=== PATIENT | female | born 1965 | race Hispanic/Latino ===

== ENCOUNTER 2020-09-11 11:38 | Outpatient (CLI) | payer OTHER, SELFPAY ==
[2020-09-11 11:52] LABS: Basophils Absolute Auto 0.09 K/mm3 (0.00-0.10); Basophils Percent Auto 1.4 % (0.0-1.0); Eosinophils Absolute Auto 0.45 K/mm3 (0.02-0.50); Eosinophils Percent Auto 7.1 % (1.0-6.0); Hematocrit 42.1 % (35.0-49.0); Hemoglobin 13.4 g/dL (12.0-15.0); Immature Granulocyte Absolute 0.01 K/mm3 (0.00-0.00); Immature Granulocyte Percent A 0.2 % (0.0-0.0); Lymphocytes Absolute Auto 2.38 K/mm3 (1.10-4.50); Lymphocytes Percent Auto 37.5 % (18.0-42.0); Mean Corpuscular HGB Conc 31.8 g/dL (32.0-36.0); Mean Corpuscular Hemoglobin 27.5 pg (27.0-31.0); Mean Corpuscular Volume 86.4 fL (78.0-102.0); Mean Platelet Volume 9.8 fl (9.2-11.8); Monocytes Absolute Auto 0.44 K/mm3 (0.10-0.90); Monocytes Percent Auto 6.9 % (2.0-11.0); Neutrophils Percent Auto 46.9 % (50.0-70.0); Platelet Count Result 333 K/mm3 (150-420); Red Blood Count 4.87 M/mm3 (4.20-5.40); Red Cell Distribution Width 14.1 % (11.6-14.4); White Blood Count 6.4 K/mm3 (4.8-10.8)
[2020-09-11 14:12] LABS: Alanine Aminotransferase 48 U/L (14-59); Alkaline Phosphatase 86 U/L (46-116); Anion Gap 8 mmol/L (8-16); Aspartate Amino Transferase 28 U/L (15-37); Bilirubin,Total 0.9 mg/dL (0.00-1.00); Blood Urea Nitrogen 14 mg/dL (7-18); Calcium 9.1 mg/dL (8.5-10.1); Carbon Dioxide 29 mmol/L (21-32); Chloride 105 mmol/L (98-108); Cholesterol 181 mg/dL (0-200); Estimated Glomerular Filt Rate > 60; Free T4 Free Thyroxine 0.73 ng/dL (0.76-1.46); Glucose 81 mg/dL (70-99); HDL Direct 78 mg/dL (40-60); LDL Cholesterol Calculated 83 mg/dL (<130); Osmolality Calculated 293 mOsm/kg (285-295); Potassium 4.2 mmol/L (3.5-5.1); Sodium 142 mmol/L (136-145); Thyroid Stimulating Hormone 1.26 uIU/mL (0.36-3.74); Total Protein 7.3 g/dL (6.4-8.2); Triglycerides 99 mg/dL (0-150)
== END 2020-09-11 11:39 | disposition home or self-care (01) ==
LOC: CHSLAB 11:41
PROVIDERS: PCP Nurse Practitioner Family; Visit Provider Nurse Practitioner Family
DX: Z00.00 Encounter for general adult medical examination without abnormal findings (principal); E03.9 Hypothyroidism, unspecified; I10 Essential (primary) hypertension
CPT/HCPCS: 36415; 80053; 80061; 84439; 84443; 85025

== ENCOUNTER 2020-09-12 11:01 | Outpatient (CLI) | payer OTHER, SELFPAY ==
--- NOTE | ~2020-09-12 | MM_ITS ---
EXAMINATION: MM screening maliha BI w shane HISTORY: Screening mammogram TECHNIQUE: Craniocaudal and mediolateral oblique 3-D tomosynthesis images were obtained and synthetic 2-D images were generated. CAD analysis was submitted and interpreted. COMPARISON: No prior mammogram is available for comparison at this institution. BREAST PARENCHYMAL COMPOSITION: There are scattered areas of fibroglandular density. FINDINGS: There are right 5 mm and left 4 mm axillary tail circumscribed opacities, benign in appeara nce, likely small intramammary benign lymph nodes. There is no evidence of suspicious mass, calcifi cation, or architectural distortion to suggest malignancy in either breast. There has been no suspici ous interval change. IMPRESSION: 1. No mammographic evidence of malignancy. 2. Recommend routine screening mammography in one year. BI-RADS Category 2: Benign finding(s). Reviewed, dictated and finalized at location A. TECHNICIAN
== END 2020-09-12 11:02 | disposition home or self-care (01) ==
LOC: CHSIMG 11:02
PROVIDERS: PCP Nurse Practitioner Family; Visit Provider Nurse Practitioner Family
DX: Z12.31 Encounter for screening mammogram for malignant neoplasm of breast (principal)
CPT/HCPCS: 77063; 77067

== ENCOUNTER 2021-06-20 09:46 | Outpatient (CLI) | payer OTHER, SELFPAY ==
--- NOTE | 2021-06-20 12:00 | NEURO_ITS ---
Impression: # Complains of numbness of hands. # Bilateral Carpal Tunnel Syndrome, sensory more than motor. # No ulnar neuropathy. # Normal needle/EMG exam. Nerve Conduction Studies Anti Sensory Summary Table Stim Site NR Peak (ms) P-T Amp (?V) Site1 Site2 Delta-P (ms) Dist (cm) Guillaume (m/s) Left Median Anti Sensory (2-3nd Digit) Wrist 4.7 21.0 Wrist 2-3nd Digit 4.7 14.0 30 Wrist 4.5 9.6 Wrist 2-3nd Digit 4.7 14.0 30 Right Median Anti Sensory (2-3nd Digit) Wrist 4.3 56.0 Wrist 2-3nd Digit 4.3 14.0 33 Wrist 6.3 86.6 Wrist 2-3nd Digit 4.3 14.0 33 Left Radial Anti Sensory (Base 1st Digit) Wrist 1.7 34.0 Wrist Base 1st Digit 1.7 0.0 Right Radial Anti Sensory (Base 1st Digit) Wrist 2.0 15.5 Wrist Base 1st Digit 2.0 0.0 Left Ulnar Anti Sensory (5th Digit) Wrist 2.4 52.2 Wrist 5th Digit 2.4 14.0 58 Right Ulnar Anti Sensory (5th Digit) Wrist 2.3 63.1 Wrist 5th Digit 2.3 14.0 61 Motor Summary Table Stim Site NR Onset (ms) O-P Amp (mV) Site1 Site2 Delta-0 (ms) Dist (cm) Guillaume (m/s) Left Median Motor (Abd Poll Brev) Wrist 3.4 3.6 Elbow Wrist 4.4 26.0 59 Elbow 7.8 3.3 Right Median Motor (Abd Poll Brev) Wrist 3.4 9.0 Elbow Wrist 4.4 25.0 57 Elbow 7.8 8.1 Left Ulnar Motor (Abd Dig Minimi) Wrist 2.3 6.8 A Elbow Wrist 4.3 26.0 60 A Elbow 6.6 5.2 Right Ulnar Motor (Abd Dig Minimi) Wrist 2.4 6.8 A Elbow Wrist 4.3 26.0 60 A Elbow 6.7 5.3 F Wave Studies NR F-Lat (ms) L-R F-Lat (ms) Left Median (Mrkrs) (Abd Poll Brev) 24.09 0.14 Right Median (Mrkrs) (Abd Poll Brev) 24.22 0.14 Left Ulnar (Mrkrs) (Abd Dig Min) 25.10 0.80 Right Ulnar (Mrkrs) (Abd Dig Min) 24.30 0.80 EMG Side Muscle Nerve Root Ins Act Fibs Amp Dur Recrt Comment Right 1stDorInt Ulnar C8-T1 Nml Nml Nml Nml Nml Right Ext Indicis Radial (Post Int) C7-8 Nml Nml Nml Nml Nml Right Ext Digitorum Radial (Post Int) C7-8 Nml Nml Nml Nml Nml Right BrachioRad Radial C5-6 Nml Nml Nml Nml Nml Right PronatorTeres Median C6-7 Nml Nml Nml Nml Nml Right Abd Poll Brev Median C8-T1 Nml Nml Nml Nml Nml Left 1stDorInt Ulnar C8-T1 Nml Nml Nml Nml Nml Left Ext Indicis Radial (Post Int) C7-8 Nml Nml Nml Nml Nml Left Ext Digitorum Radial (Post Int) C7-8 Nml Nml Nml Nml Nml Left BrachioRad Radial C5-6 Nml Nml Nml Nml Nml Left PronatorTeres Median C6-7 Nml Nml Nml Nml Nml Left Abd Poll Brev Median C8-T1 Nml Nml Nml Nml Nml Right ABD Dig Min Ulnar C8-T1 Nml Nml Nml Nml Nml Left ABD Dig Min Ulnar C8-T1 Nml Nml Nml Nml Nml MTDD
== END 2021-06-20 09:47 | disposition home or self-care (01) ==
PROVIDERS: PCP Nurse Practitioner Family; Visit Provider Plastic Surgery
DX: R20.2 Paresthesia of skin (principal); G56.03 Carpal tunnel syndrome, bilateral upper limbs
CPT/HCPCS: 95886; 95911

== ENCOUNTER → 2021-08-27 03:40 | Outpatient (CLI) | payer OTHER, SELFPAY ==
[2021-08-27 19:11] LABS: SARS-CoV-2 RNA PCR Negative
== END ==
PROVIDERS: PCP Nurse Practitioner Family; Visit Provider Plastic Surgery
DX: Z01.812 Encounter for preprocedural laboratory examination (principal); Z20.822 Contact with and (suspected) exposure to COVID-19
CPT/HCPCS: C9803; U0003; U0005

== ENCOUNTER 2021-08-30 01:11 | Day surgery (SDC) | payer OTHER, SELFPAY ==
[2021-08-22 11:58] VITALS: BMI 26.6
--- NOTE | 2021-08-22 12:10 | PC.NURSE ---
Report to the Outpatient Waiting Room, entrance under the green pavilion located off [facility], at time 1100 on date 08/30/21. OR Time: 1200. - You and your visitor will be asked a series of questions to screen for COVID 19 for your protection. - A mask is required within the hospital. - Only one visitor is allowed at this time. Patient visitors will be guided where to wait when not with patient. Preoperative COVID Testing Requirements: No COVID Test needed if: (proof is required; if not received patient will have Rapid Test prior to entry) - Patient has received COVID Vaccine at least 14 days prior to procedure date or - Patient has positive COVID test result within last 90 days of surgery date. COVID Test needed if above criteria is not met If not COVID vaccinated a COVID test must be conducted within 72 hours of surgery and patient is asked to isolate self from time of testing until procedure. You will go to the [facility] for your COVID testing. The [facility] Testing site is located at the corner of [address] [facility]. COVID TEST 08/27 AT 0910 You will only be called if COVID results are positive and your surgeon may reschedule your elective surgery date. Patients may have LIGHT BREAKFAST MORNING OF SURGERY Take the following medications with a SIP of water the morning of surgery: PRESCRIBED Medications to discontinue per physician: N/A Date to take last dose: N/A Please no make-up, nail cambodian, hairspray, perfume, deodorant, or body powder the day of surgery. No jewelry (including any body piercings) or valuables the day of surgery, leave them at home. Please take a shower or bath the night before, or the morning of, surgery with an antibacterial soap. Wear comfortable, loose fitting clothing. Children are encouraged to wear pajamas. - Jewelry must be removed prior to entering the operating room. Rings and piercings that are not removed may be cut off. - The hospital will not accept responsibility for valuables. - Please leave all valuables, including medications, at home the day of surgery. If you are going home after surgery, YOU MAY DRIVE YOURSELF HOME. Follow any additional instructions given to you from your surgeon. Telephone instructions given to FAZAL BRANCH and asked if any additional questions and then verbalized understanding. Patient advised to call surgeon office or pre surgery nurse liaison [phone] if any additional questions.
[2021-08-30] VITALS (7 sets, daily range): BP systolic 124–144; BP diastolic 63–83; PULSE 37–52; RESP 16–20; TEMP 37.2; O2SAT 98–100
--- NOTE | 2021-08-30 07:32 | WPDHPUPDATE1 ---
History and Physical Update Update Date/Time: 08/30/21 07:32 History and Physical has been reviewed, including an updated exam of the patient. There are NO changes in the patient's condition. Risks, benefits, and alternatives have been discussed and questions answered. Patient agrees to proceed with procedure.
[2021-08-30] MEDS: LIDO 1%/EPINEPHRINE 1:100,000 50 ML VIAL 7 ML INFILTRATE (11:44)
[2021-08-30] MEDS: BACITRACIN ZINC OINTMENT 0.9 GRAM PACKET 1 PACKET TOPICAL (12:18)
--- NOTE | 2021-08-30 14:53 | W.PM.PROC2 ---
Procedure Note - Detailed Date of Procedure 08/30/21 Pre-op Diagnosis Rt Carpal Tunnel Syndrome Post-op Diagnosis same Procedure Performed Right open carpal tunnel release Surgeon Bryce Krishnamurthy MD Anesthesia local Description of Procedure The right carpal tunnel region was marked on the patient in the holding area. She was taken to the operating room placed operating table. Time-out was held and confirmed. The right upper extremity prepped and draped in usual fashion tourniquet applied. Site was marked for the incision and infiltrated with 1% lidocaine with epinephrine. Time was allowed for hemostatic effect. The arm tourniquet was not utilized. The incision was made as marked and dissection was carried bluntly through the subcutaneous tissue to the palmar aponeurosis. This was incised revealing the transverse carpal ligament. This was also incised. A few bleeding points in the wall of the wound in the subcutaneous tissue were cauterized. Under 3 point retraction the ligament was divided distally and proximally for complete release. No unusual anatomy was noted. The skin was closed with interrupted 5 0 nylon suture. Usual bandage applied Srinivas wrap. She is discharged from the operating room stable condition. She has a prescription for hydrocodone [id number] [id number]. Estimated Blood Loss 2 Tourniquet Time 0 Drains No Packing No Pathology none sent Complications No immediate complications Condition stable Disposition same day
== END 2021-08-30 12:53 | disposition home or self-care (01) ==
PROVIDERS: PCP Nurse Practitioner Family; Visit Provider Plastic Surgery
PROC: (CPT 64721; principal; 2021-08-30 11:15)
DX: G56.01 Carpal tunnel syndrome, right upper limb (principal)
CPT/HCPCS: 64721; A9270

== ENCOUNTER 2021-09-06 11:13 | Outpatient (CLI) | payer OTHER, SELFPAY ==
--- NOTE | ~2021-09-06 | XR_ITS ---
EXAMINATION: XR shoulder RT min 2V EXAM DATE: 09/06/2021 11:44 INDICATION: Right shoulder pain, neck stiffness. TECHNIQUE: The following right shoulder projections obtained: frontal projection with internal rotati on, frontal projection with external rotation, Grashey, and axillary (4+ views). There is no prior s tudy for comparison. FINDINGS: No evidence of right shoulder rotator cuff calcific tendinosis. There is mild glenohumer al joint, mild acromioclavicular joint primary osteoarthritis. There are no acute fractures or disloc ations identified. There is no subcutaneous gas. The soft tissue is unremarkable. There are no ra diopaque foreign bodies. IMPRESSION: Mild right shoulder osteoarthritis. Reviewed, dictated and finalized at location B. AR WORKER
--- NOTE | ~2021-09-06 | XR_ITS ---
EXAMINATION: XR_CERV2-3V_CR EXAM DATE: 09/06/2021 11:44 INDICATION: Neck pain, stiffness, right shoulder pain. TECHNIQUE: Cervical spine frontal, lateral, open-mouth odontoid projections. There is no prior stud y for comparison. FINDINGS: There is moderate disc disease at C5-6 and 6-7. There is 2 mm anterolisthesis C4 on C5. Th e vertebral bodies are otherwise aligned. The vertebral body and disc heights are otherwise well main tained. The odontoid process is intact. The lateral masses of C1 line up with C2. Prevertebral soft tissue and pre-dens space are within normal limits. There is moderate cervical arthropathy and mid ce rvical uncovertebral joint arthropathy causing some neural foraminal stenosis C5-6 and 6-7. IMPRESSION: Moderate cervical spondylosis. Reviewed, dictated and finalized at location B. E PILOT
== END 2021-09-06 11:14 | disposition home or self-care (01) ==
LOC: CHSIMG 11:15
PROVIDERS: PCP Nurse Practitioner Family; Visit Provider Nurse Practitioner Family
DX: M25.511 Pain in right shoulder (principal); M54.2 Cervicalgia
CPT/HCPCS: 72040; 73030

== ENCOUNTER → 2021-09-21 00:14 | Outpatient (CLI) | payer OTHER, SELFPAY ==
[2021-09-22 16:52] LABS: SARS-CoV-2 RNA PCR Negative
== END ==
PROVIDERS: PCP Nurse Practitioner Family; Visit Provider Plastic Surgery
DX: Z01.812 Encounter for preprocedural laboratory examination (principal); Z20.822 Contact with and (suspected) exposure to COVID-19
CPT/HCPCS: C9803; U0003; U0005

== ENCOUNTER 2021-09-26 00:45 | Day surgery (SDC) | payer OTHER, SELFPAY ==
[2021-09-20 10:00] VITALS: BMI 27.6
--- NOTE | 2021-09-20 10:06 | PC.NURSE ---
Report to the Outpatient Waiting Room, entrance under the green pavilion located off [facility], at time 0930 on date 09/26/21. OR Time: 1030. - You will be asked a series of questions to screen for COVID 19 for your protection. - A mask is required within the hospital. - No visitors are allowed at this time. Preoperative COVID Testing Requirements: No COVID Test needed if: (proof is required; if not received patient will have Rapid Test prior to entry) - Patient has received COVID Vaccine at least 14 days prior to procedure date or - Patient has positive COVID test result within last 90 days of surgery date. COVID Test needed if above criteria is not met If not COVID vaccinated a COVID test must be conducted within 72 hours of surgery and patient is asked to isolate self from time of testing until procedure. You will go to the [facility] for your COVID testing. The [facility] Testing site is located at the corner of [address] [facility]. COVID TEST 09/21 AT 0920 You will only be called if COVID results are positive and your surgeon may reschedule your elective surgery date. Patients may have LIGHT BREAKFAST MORNING OF SURGERY Take the following medications with a SIP of water the morning of surgery: PRESCRIBED Medications to discontinue per physician: N/A Date to take last dose: N/A Please no make-up, nail occitan, hairspray, perfume, deodorant, or body powder the day of surgery. No jewelry (including any body piercings) or valuables the day of surgery, leave them at home. Please take a shower or bath the night before, or the morning of, surgery with an antibacterial soap. Wear comfortable, loose fitting clothing. Children are encouraged to wear pajamas. - Jewelry must be removed prior to entering the operating room. Rings and piercings that are not removed may be cut off. - The hospital will not accept responsibility for valuables. - Please leave all valuables, including medications, at home the day of surgery. YOU MAY DRIVE YOURSELF HOME. Follow any additional instructions given to you from your surgeon. Telephone instructions given to FAZAL BRANCH and asked if any additional questions and then verbalized understanding. Patient advised to call surgeon office or pre surgery nurse liaison [phone] if any additional questions.
[2021-09-26] VITALS (7 sets, daily range): BP systolic 123–164; BP diastolic 63–82; PULSE 43–60; RESP 16; TEMP 36.5; O2SAT 97–100
--- NOTE | 2021-09-26 07:14 | WPDHPUPDATE1 ---
History and Physical Update Update Date/Time: 09/26/21 07:14 History and Physical has been reviewed, including an updated exam of the patient. There are NO changes in the patient's condition. Risks, benefits, and alternatives have been discussed and questions answered. Patient agrees to proceed with procedure.
--- NOTE | 2021-09-26 10:38 | SUR.PREOP ---
pt informed slight delay in procedure.
[2021-09-26] MEDS: LIDO 1%/EPINEPHRINE/PF 1:200,000 30 ML VIAL INFILTRATE (11:23)
--- NOTE | 2021-09-26 11:40 | P.OP_ITS ---
Procedure Note - Detailed Date of Procedure 09/26/21 Pre-op Diagnosis Lt Carpal Tunnel Syndrome Post-op Diagnosis same Procedure Performed Left open carpal tunnel release Surgeon Bryce Krishnamurthy MD Anesthesia local Description of Procedure Volar wrist was in holding area. The patient was taken to the operating room and placed supine on the operating table. A time-out was held and confirmed. The extremity was prepped and draped in usual fashion. The site was marked and locally infiltrated with 1% lidocaine with epinephrine. The procedure was done without tourniquet control. The incision was made and some subcutaneous vessels were cauterized immediately. The blunt dissection revealed the palmar apon eurosis. This and the carpal ligament were incised with a 15. Blade. The carpal retinaculum was identified and under 3 point retraction the site was exposed and lysed distally and proximally. There was no unusual anatomy noted. The skin was closed with interrupted 5 0 nylon suture. The usual bandage was applied. She is discharged from the operating room stable condition. She has a prescription for hydrocodone 5/325 number 7. Estimated Blood Loss 2 Tourniquet Time 0 Drains No Packing No Pathology none sent Complications No immediate complications Condition stable Disposition same day
== END 2021-09-26 12:29 | disposition home or self-care (01) ==
PROVIDERS: PCP Nurse Practitioner Family; Visit Provider Plastic Surgery
PROC: (CPT 64721; principal; 2021-09-26 10:30)
DX: G56.02 Carpal tunnel syndrome, left upper limb (principal)
CPT/HCPCS: 64721; A9270

== ENCOUNTER 2021-12-20 17:19 | Emergency (ER) | payer OTHER, SELFPAY ==
--- NOTE | ~2021-12-20 | XR_ITS ---
XR chest 2V DATE: 12/20/2021 17:49 INDICATION: Dyspnea, cough for 3 weeks TECHNIQUE: 2 views COMPARISON: None FINDINGS: Normal heart size. No hilar or mediastinal enlargement. No pulmonary infiltrate or consolid ation, pleural effusion or pulmonary vascular congestion or pneumothorax. Aortic arch calcification. Included skeletal structures are unremarkable other than osteopenia. IMPRESSION: No active cardiac pulmonary disease Aortic arch calcification Osteopenia Reviewed, dictated and finalized at location A.
[2021-12-20 17:25] VITALS: BP 179/80; PULSE 84; RESP 18; TEMP 36.6; O2SAT 97
[2021-12-20 17:50] VITALS: PULSE 65; RESP 16; O2SAT 100
[2021-12-20] MEDS: IPRATROPIUM 0.5 MG/ALBUTEROL SULFATE 2.5 MG AMPUL.NEB 3 ML INHALATION (17:51)
[2021-12-20 18:00] VITALS: PULSE 75; RESP 16; O2SAT 99
--- NOTE | 2021-12-20 18:06 | ED.URI ---
HPI - URI/Sore Throat General Chief Complaint: Upper Respiratory Infection Stated Complaint: weakness,congestion,sob Time Seen by Provider: 12/20/21 18:06 Source: patient Mode of arrival: ambulatory Limitations: no limitations History of Present Illness HPI Narrative: this is a 56-year-old female that presents with a cough and congestion with some mild shortness of breath but the patient's O2 sats are 97% the patient was seen by her primary and was started on a Z-Tristan and after 3 to 4 days the patient states that she does not feel any better she feels like there is chest congestion. Patient has no fever chills no nausea vomiting no chest pain. MD elicited complaint: fever, cough and nasal congestion Onset (ago): day(s) Consistency: intermittent Severity: mild Related Data Allergies Allergy/AdvReac Type Severity Reaction Status Date / Time ibuprofen [From Advil] Allergy Swelling Verified 12/20/21 17:34 of the Eye Review of Systems Review of Systems: All systems reviewed & are unremarkable except as noted in HPI and below PMFSH Past Medical History Medical History HTN (hypertension) Hyperlipidemia Hypothyroidism Type 2 diabetes mellitus Surgical History Surgical History H/O carpal tunnel repair S/P trigger finger release Social History Social History Smoking status: Never smoker Alcohol intake: current Alcohol use details: 2/MONTH Substance use: never Substance use type: does not use Additional living arrangements comments: Lives with [facility]? Spiritual care concerns: No Exam Const: General: no acute distress Orientation/consciousness: patient oriented x3 HENMT: Head: normal to inspection Eyes: Conjunctivae: conjunctivae normal Pupils: Equal, round and reactive pupils present Neck: Neck: normal visual inspection, no lymphadenopathy and no meningeal signs Chest: Chest palpation & inspection: normal inspection of the chest Resp: Effort & Inspection: normal respiratory effort GI: GI Palp: Yes Soft to palpation : General: Yes no CVA tenderness Urinary Catheter: Urinary Catheter: patent and draining Skin: General skin exam: normal color Rashes: no rashes Neuro: General: patient oriented x3 and moves all extremities Extrem: General: normal to inspection and no pedal edema Psych: Mental Status: mental status grossly normal Affect: normal affect Course Course Emergency Course: Patient received nebulizer treatment patient states that chest congestion has improved, chest x-ray was reviewed and shows no pulmonary infiltrates, labs reviewed with patient. Vital Signs Vital signs: Vital Signs Temperature 36.6 C 12/20/21 17:25 Pulse Rate 84 12/20/21 17:25 Respiratory Rate 18 12/20/21 17:25 Blood Pressure 179/80 H 12/20/21 17:25 Pulse Oximetry 97 12/20/21 17:25 Temperature 36.6 C 12/20/21 17:25 Pulse Rate 84 12/20/21 17:25 Respiratory Rate 18 12/20/21 17:25 Blood Pressure 179/80 H 12/20/21 17:25 Pulse Oximetry 97 12/20/21 17:25 Critical Care Time Critical Care Time Critical Care Time: No Discharge Plan Discharge Clinical Impression: Upper respiratory tract infection Qualifiers: URI type: unspecified URI Qualified Code(s): J06.9 - Acute upper respiratory infection, unspecified Patient Disposition: Home, Self-Care Condition: Guarded Prognosis Instructions: Antibiotic Form, Upper Respiratory Infection (ED) Additional Instructions: take medicine as prescribed follow-up primary care physician if symptoms persist or worsen. Prescriptions: New levofloxacin 500 mg tablet 500 mg PO DAILY 7 Days Qty: 7 RF: 0 albuterol sulfate [ProAir HFA] 90 mcg/actuation HFA aerosol inhaler 2 puff inhalation QID PRN (Reason: shortness of breath or wheezing) Qty:
[2021-12-20 18:09] LABS: Basophils Absolute Auto 0.06 K/mm3 (0.00-0.10); Basophils Percent Auto 0.9 % (0.0-1.0); Eosinophils Absolute Auto 0.12 K/mm3 (0.02-0.50); Eosinophils Percent Auto 1.9 % (1.0-6.0); Hematocrit 44.5 % (35.0-49.0); Hemoglobin 14.4 g/dL (12.0-15.0); Immature Granulocyte Absolute 0.01 K/mm3 (0.00-0.00); Immature Granulocyte Percent A 0.2 % (0.0-0.0); Lymphocytes Absolute Auto 2.18 K/mm3 (1.10-4.50); Lymphocytes Percent Auto 34.2 % (18.0-42.0); Mean Corpuscular HGB Conc 32.4 g/dL (32.0-36.0); Mean Corpuscular Hemoglobin 28.4 pg (27.0-31.0); Mean Corpuscular Volume 87.8 fL (78.0-102.0); Mean Platelet Volume 9.7 fl (9.2-11.8); Monocytes Absolute Auto 0.87 K/mm3 (0.10-0.90); Monocytes Percent Auto 13.7 % (2.0-11.0); Neutrophils Absolute Auto 3.1 K/mm3 (1.7-7.2); Neutrophils Percent Auto 49.1 % (50.0-70.0); Platelet Count Result 331 K/mm3 (150-420); Red Blood Count 5.07 M/mm3 (4.20-5.40); Red Cell Distribution Width 13.8 % (11.6-14.4); White Blood Count 6.4 K/mm3 (4.8-10.8)
[2021-12-20 18:17] VITALS: PULSE 78; RESP 16; O2SAT 99
[2021-12-20 18:27] LABS: Alanine Aminotransferase 49 U/L (14-59); Albumin Level 3.5 g/dL (3.4-5.0); Alkaline Phosphatase 82 U/L (46-116); Anion Gap 11 mmol/L (8-16); Aspartate Amino Transferase 44 U/L (15-37); Bilirubin,Total 0.3 mg/dL (0.00-1.00); Blood Urea Nitrogen 14 mg/dL (7-18); Calcium 8.6 mg/dL (8.5-10.1); Carbon Dioxide 23 mmol/L (21-32); Chloride 103 mmol/L (98-108); Estimated CRCL calculation 62 ml/min; Estimated Glomerular Filt Rate > 60; Glucose 245 mg/dL (70-99); Osmolality Calculated 292 mOsm/kg (285-295); Potassium 3.7 mmol/L (3.5-5.1); Sodium 137 mmol/L (136-145); Total Protein 7.3 g/dL (6.4-8.2)
[2021-12-20 18:43] VITALS: BP 149/88; PULSE 69; RESP 18; TEMP 36.5; O2SAT 99
== END 2021-12-20 18:44 | disposition home or self-care (01) ==
PROVIDERS: Emergency Provider Emergency Medicine; PCP Nurse Practitioner Family
DX: J06.9 Acute upper respiratory infection, unspecified (principal)
CPT/HCPCS: 36415; 71046; 80053; 85025; 94640; 99283

== ENCOUNTER 2022-06-13 14:25 | Outpatient (CLI) | payer OTHER, SELFPAY ==
--- NOTE | ~2022-06-13 | XR_ITS ---
XR hip LT min 2V DATE: 06/13/2022 14:39 INDICATION: Chronic left hip pain. No known injury. TECHNIQUE: AP and lateral views COMPARISON: None FINDINGS: No fracture or dislocation, avascular necrosis or bone destruction. No periosteal reaction or bone destruction. Normal alignment at the left sacroiliac joint and pubic symphysis. IMPRESSION: Negative left hip Reviewed, dictated and finalized at location B. IMPRESSION: Negative left hip
== END 2022-06-13 14:26 | disposition home or self-care (01) ==
LOC: CHSIMG 14:27
PROVIDERS: PCP Nurse Practitioner Family; Visit Provider Nurse Practitioner Family
DX: M25.552 Pain in left hip (principal)
CPT/HCPCS: 73502

== ENCOUNTER 2022-09-09 11:49 | Outpatient (CLI) | payer OTHER, SELFPAY ==
[2022-09-09 12:33] LABS: Influenza A QL RT-PCR Negative (Negative); Influenza B QL RT-PCR Negative (Negative); SARS-CoV-2 RNA PCR Positive (Negative)
== END 2022-09-09 11:50 | disposition home or self-care (01) ==
LOC: CHSLAB 11:50
PROVIDERS: PCP Nurse Practitioner Family; Visit Provider Nurse Practitioner Family
DX: U07.1 COVID-19 (principal); R05.9 Cough, unspecified; R50.9 Fever, unspecified
CPT/HCPCS: 87636

== ENCOUNTER 2023-03-03 00:58 | Day surgery (SDC) | payer OTHER, SELFPAY ==
[2023-02-21 15:03] VITALS: BMI 25.4
--- NOTE | 2023-03-03 07:36 | WPDANESEPPF ---
Anes - Initial Pre Proc Eval Procedure: Operation Date: 03/03/23 13:30 Proposed Procedures p Screening Colonoscopy - Sonny Chowdary MD Date/Time: 03/03/23 07:36 Surgeon: Sonny Chowdary MD Pre Op Diagnosis: neoplasm screening Patient Data Age: 57 Gender: F Height: 1.52 m Weight: 59 kg Allergies Allergy/AdvReac Type Severity Reaction Status Date / Time ibuprofen [From Advil] Allergy Swelling Verified 03/03/23 12:28 of the Eye latex Allergy Other Verified 03/03/23 12:28 Home Medications Medication Instructions Recorded Confirmed Type loratadine 10 mg tablet (Allergy 10 mg PO DAILY #30 tabs 06/13/22 02/21/23 Rx Relief (loratadine)) fluticasone propionate 50 1 - 2 spray intranasal BID #18.2 mL 07/10/22 02/21/23 Rx mcg/actuation nasal spray,suspension (Flonase Allergy Relief) acetaminophen 650 mg tablet 650 mg PO Q6H PRN Pain 02/21/23 02/21/23 History albuterol sulfate 90 mcg/actuation 1 puff inhalation Q4H PRN 02/21/23 02/21/23 History aerosol inhaler Shortness Of Breath multivitamin with minerals-folic 1 tablet PO DAILY 02/21/23 02/21/23 History acid 0.4 mg tablet Patient hx anesthesia problems: none Family hx anesthesia problems: none Results Review: All pre-operative results and documents have been reviewed as part of the pre-operative evaluation. [facility], [facility] Past Medical History Medical History (Updated 02/28/23 @ 14:58 by Jarad Arguello DO) HTN (hypertension) Hyperlipidemia Hypothyroidism Sinus bradycardia Type 2 diabetes mellitus Surgical History Surgical History (Updated 02/28/23 @ 14:58 by Jarad Arguello DO) H/O carpal tunnel repair History of gastric bypass History of tubal ligation S/P trigger finger release Family History Family History Father Hypertension Heart disease Mother Diabetes mellitus Cerebrovascular accident Social History Social History (Updated 01/17/23 @ 15:44 by Shelbi Saucedo MA) Smoking status: Never smoker Alcohol intake: current Alcohol use details: monthly Substance use: never Substance use type: does not use Lack of Transportation: No Lack of Food: Never True Current Housing: I Have Housing Concerned About Future Housing: No Difficulty Paying Gas/Electric Bills: No Difficulty Paying for Meds: No Currently Unemployed: No Education: High School Diploma/GED Difficulty w/ Childcare or Family Care: No Living arrangements: with family Additional living arrangements comments: Lives with [place]? Spiritual care concerns: No Anes - Eval Final PreProcedure Day of Procedure 03/03/23 07:36 Patient weight: overweight Heart: regular rate and rhythm Lungs: clear to auscultation Airway: Mallampati scale class II Neurological: alert and oriented Last oral intake: >/= 8 hours ASA classification: III Emergent: no Anesthetic plan: proceed Anesthesia type and monitoring: general GIVS and standard monitoring Results Review: All pre-operative results and documents have been reviewed as part of the pre-operative evaluation. Informed Consent: The patient's anesthetic plan and its attendant risks and benefits were discussed with the patient/family/POA. Questions were solicited and answers provided to the satisfaction of the patient/family/POA.
[2023-03-03 12:29] VITALS: BP 142/84; PULSE 55; RESP 16; TEMP 36.1; O2SAT 99
[2023-03-03] MEDS: LACTATED RINGERS 1,000 ML 150 ML IV CONT (12:39)
--- NOTE | 2023-03-03 12:53 | PM.HPGS ---
History of Present Illness History of Present Illness Consent: Risks, benefits, and alternatives have been discussed and questions answered. Patient agrees to proceed with procedure. Chief complaint: neoplasm screening Narrative: Michelle Sheehan is a 57 year old female Presents for screening colonoscopy. Patient's current weight appetite and bowel movements are normal. Patient denies abdominal pain. She has had no bleeding. Family history is noncontributory. Review of Systems Review of Systems: Review of systems noncontributory. [facility] Past Medical History Medical History (Updated 02/28/23 @ 14:58 by Jarad Arguello DO) HTN (hypertension) Hyperlipidemia Hypothyroidism Sinus bradycardia Type 2 diabetes mellitus Surgical History Surgical History (Updated 02/28/23 @ 14:58 by Jarad Arguello DO) H/O carpal tunnel repair History of gastric bypass History of tubal ligation S/P trigger finger release Family History Family History Father Hypertension Heart disease Mother Diabetes mellitus Cerebrovascular accident Social History Social History (Updated 01/17/23 @ 15:44 by Shelbi Saucedo MA) Smoking status: Never smoker Alcohol intake: current Alcohol use details: monthly Substance use: never Substance use type: does not use Lack of Transportation: No Lack of Food: Never True Current Housing: I Have Housing Concerned About Future Housing: No Difficulty Paying Gas/Electric Bills: No Difficulty Paying for Meds: No Currently Unemployed: No Education: High School Diploma/GED Difficulty w/ Childcare or Family Care: No Living arrangements: with family Additional living arrangements comments: Lives with Fianc? Spiritual care concerns: No Meds Home Medications and Allergies Home Medications Medication Instructions Recorded Confirmed Type loratadine 10 mg tablet (Allergy 10 mg PO DAILY #30 tabs 06/13/22 02/21/23 Rx Relief (loratadine)) fluticasone propionate 50 1 - 2 spray intranasal BID #18.2 mL 07/10/22 02/21/23 Rx mcg/actuation nasal spray,suspension (Flonase Allergy Relief) acetaminophen 650 mg tablet 650 mg PO Q6H PRN Pain 02/21/23 02/21/23 History albuterol sulfate 90 mcg/actuation 1 puff inhalation Q4H PRN 02/21/23 02/21/23 History aerosol inhaler Shortness Of Breath multivitamin with minerals-folic 1 tablet PO DAILY 02/21/23 02/21/23 History acid 0.4 mg tablet Allergies Allergy/AdvReac Type Severity Reaction Status Date / Time ibuprofen [From Advil] Allergy Swelling Verified 03/03/23 12:28 of the Eye latex Allergy Other Verified 03/03/23 12:28 Vital Signs Vital Signs - 24 hr 03/03/23 12:29 Temperature 97 F L Pulse Rate 55 L Respiratory Rate 16 Blood Pressure 142/84 H Pulse Oximetry 99 Oxygen Delivery Room Air Exam Narrative: Physical exam reveals patient to be alert. Vital signs stable. HEENT exam is unremarkable. Patient is anicteric. Lungs are clear to auscultation and percussion. Heart is without murmur or extra sounds. Abdomen bowel sounds are present soft nontender with no organomegaly. Digital external rectal exam normal. Assessment and Plan Assessment and plan (1) Screening for colon cancer: Code(s): Z12.11 - Encounter for screening for malignant neoplasm of colon Status: Acute Assessment and Plan: Patient presents for screening colonoscopy. She appears to be at average risk for colon polyps. Further recommendations may be given after endoscopy.
[2023-03-03 13:51] VITALS: BP 117/79; PULSE 65; RESP 18; O2SAT 97
[2023-03-03 14:01] VITALS: BP 119/75; PULSE 55; RESP 22; O2SAT 100
[2023-03-03 14:11] VITALS: BP 132/76; PULSE 53; RESP 22; O2SAT 100
== END 2023-03-03 14:22 | disposition home or self-care (01) ==
PROVIDERS: PCP Emergency Medicine; Visit Provider Internal Medicine Gastroenterology
PROC: 0DJD8ZZ Inspection of Lower Intestinal Tract, Via Natural or Artificial Opening Endoscopic (ICD-10-PCS; CPT 45378; principal; 2023-03-03 13:30)
DX: Z12.11 Encounter for screening for malignant neoplasm of colon (principal); K64.8 Other hemorrhoids; K57.30 Diverticulosis of large intestine without perforation or abscess without bleeding; I10 Essential (primary) hypertension; E78.5 Hyperlipidemia, unspecified; E03.9 Hypothyroidism, unspecified; E11.9 Type 2 diabetes mellitus without complications; Z98.84 Bariatric surgery status; Z79.51 Long term (current) use of inhaled steroids
CPT/HCPCS: 45378; J2704; J7120

== ENCOUNTER 2024-02-19 07:42 | Day surgery (SDC) | payer OTHER, SELFPAY ==
[2024-01-30 15:14] VITALS: BMI 26.4
[2024-02-03 12:52] VITALS: BMI 26.2
--- NOTE | 2024-02-19 06:59 | WPDANESEPPF ---
Anes - Initial Pre Proc Eval Procedure: Operation Date: 02/19/24 10:00 Proposed Procedures p Esophagogastroduodenoscopy - Sonny Chowdary MD Date/Time: 02/19/24 06:59 Surgeon: Sonny Chowdary MD Pre Op Diagnosis: Epigastric pain, history of gastric bypass Patient Data Age: 58 Gender: F Height: 1.52 m Weight: 61 kg Allergies Allergy/AdvReac Type Severity Reaction Status Date / Time latex Allergy Intermediate Rash Verified 02/19/24 09:00 ibuprofen [From Advil] Allergy Mild Swelling Verified 02/19/24 09:00 of the Eye Home Medications Medication Instructions Recorded Confirmed Type loratadine 10 mg tablet (Allergy 10 mg PO DAILY #30 tabs 06/13/22 02/03/24 Rx Relief (loratadine)) acetaminophen 650 mg tablet 650 mg PO Q6H PRN Pain 02/21/23 02/19/24 History multivitamin with minerals-folic 1 tablet PO DAILY 02/21/23 02/03/24 History acid 0.4 mg tablet azelastine 137 mcg (0.1 %) nasal See Rx Instructions .Route 12/08/23 02/19/24 Rx spray aerosol .COMPLEX #30 mL albuterol sulfate 90 mcg/actuation 1 puff inhalation Q4H PRN 12/10/23 02/19/24 Rx aerosol inhaler Shortness Of Breath #8.5 grams cholecalciferol (vitamin D3) 1,250 1,250 mcg PO WEEKLY #8 tabs 01/08/24 02/03/24 Rx mcg (50,000 unit) tablet lisinopril 40 mg tablet 40 mg PO DAILY #90 tabs 01/08/24 02/03/24 Rx amitriptyline 25 mg tablet 25 mg PO QHS #30 tabs 01/29/24 02/03/24 Rx omeprazole 20 mg capsule,delayed 20 mg PO DAILY #30 caps 02/19/24 Rx release Patient hx anesthesia problems: none Family hx anesthesia problems: none Results Review: All pre-operative results and documents have been reviewed as part of the pre-operative evaluation. [facility] Past Medical History Medical History HTN (hypertension) Hyperlipidemia Hypothyroidism Sinus bradycardia Type 2 diabetes mellitus Resolved after gastric bypass Surgical History Surgical History H/O carpal tunnel repair History of gastric bypass History of tubal ligation S/P trigger finger release Family History Family History Father Hypertension Heart disease Mother Diabetes mellitus Cerebrovascular accident Social History Social History Smoking status: Never smoker Alcohol intake: current Drinks per week: 0 Alcohol use details: 1-2 PER MONTH Substance use: never Substance use type: does not use Lack of Transportation: No Lack of Food: Never True Current Housing: I Have Housing Concerned About Future Housing: No Difficulty Paying Gas/Electric Bills: No Difficulty Paying for Meds: No Currently Unemployed: No Education: High School Diploma/GED Difficulty w/ Childcare or Family Care: No Living arrangements: with family Additional living arrangements comments: Lives with Fianc? Spiritual care concerns: No Anes - Eval Final PreProcedure Day of Procedure 02/19/24 06:59 Patient weight: overweight Heart: regular rate and rhythm Lungs: clear to auscultation Airway: Mallampati scale class II Neurological: alert and oriented Last oral intake: >/= 8 hours ASA classification: II Emergent: no Anesthetic plan: proceed Anesthesia type and monitoring: general GIVS and standard monitoring Results Review: All pre-operative results and documents have been reviewed as part of the pre-operative evaluation. Informed Consent: The patient's anesthetic plan and its attendant risks and benefits were discussed with the patient/family/POA. Questions were solicited and answers provided to the satisfaction of the patient/family/POA.
[2024-02-19 09:11] VITALS: BP 145/91; PULSE 52; RESP 18; TEMP 36.4; O2SAT 99; BMI 26.7
[2024-02-19] MEDS: LACTATED RINGERS 1,000 ML 150 ML IV CONT (09:24)
--- NOTE | 2024-02-19 09:26 | PM.HPGS ---
History of Present Illness History of Present Illness Consent: Risks, benefits, and alternatives have been discussed and questions answered. Patient agrees to proceed with procedure. Chief complaint: Epigastric pain, history of gastric bypass Narrative: Michelle Sheehan is a 58 year old female presents on referral for EGD. Patient has a history of gastric bypass surgery 2016. She reports over the last 3 months has had epigastric discomfort. It may be a little bit worse on drinking spicy drinks. Sometimes were after drinking coffee. Patient has not tried any specific therapy nor antacids. She is referred for EGD denies any recent weight loss she has had no bleeding. Family history noncontributory. Review of Systems Review of Systems: All systems reviewed & are unremarkable except as noted in HPI and below PMFSH Past Medical History Medical History HTN (hypertension) Hyperlipidemia Hypothyroidism Sinus bradycardia Type 2 diabetes mellitus Resolved after gastric bypass Surgical History Surgical History H/O carpal tunnel repair History of gastric bypass History of tubal ligation S/P trigger finger release Family History Family History Father Hypertension Heart disease Mother Diabetes mellitus Cerebrovascular accident Social History Social History Smoking status: Never smoker Alcohol intake: current Drinks per week: 0 Alcohol use details: 1-2 PER MONTH Substance use: never Substance use type: does not use Lack of Transportation: No Lack of Food: Never True Current Housing: I Have Housing Concerned About Future Housing: No Difficulty Paying Gas/Electric Bills: No Difficulty Paying for Meds: No Currently Unemployed: No Education: High School Diploma/GED Difficulty w/ Childcare or Family Care: No Living arrangements: with family Additional living arrangements comments: Lives with Fianc? Spiritual care concerns: No Meds Home Medications and Allergies Home Medications Medication Instructions Recorded Confirmed Type loratadine 10 mg tablet (Allergy 10 mg PO DAILY #30 tabs 06/13/22 02/03/24 Rx Relief (loratadine)) acetaminophen 650 mg tablet 650 mg PO Q6H PRN Pain 02/21/23 02/19/24 History multivitamin with minerals-folic 1 tablet PO DAILY 02/21/23 02/03/24 History acid 0.4 mg tablet azelastine 137 mcg (0.1 %) nasal See Rx Instructions .Route 12/08/23 02/19/24 Rx spray aerosol .COMPLEX #30 mL albuterol sulfate 90 mcg/actuation 1 puff inhalation Q4H PRN 12/10/23 02/19/24 Rx aerosol inhaler Shortness Of Breath #8.5 grams cholecalciferol (vitamin D3) 1,250 1,250 mcg PO WEEKLY #8 tabs 01/08/24 02/03/24 Rx mcg (50,000 unit) tablet lisinopril 40 mg tablet 40 mg PO DAILY #90 tabs 01/08/24 02/03/24 Rx amitriptyline 25 mg tablet 25 mg PO QHS #30 tabs 01/29/24 02/03/24 Rx Allergies Allergy/AdvReac Type Severity Reaction Status Date / Time latex Allergy Intermediate Rash Verified 02/19/24 09:00 ibuprofen [From Advil] Allergy Mild Swelling Verified 02/19/24 09:00 of the Eye Vital Signs Vital Signs - 24 hr 02/19/24 09:11 Temperature 97.6 F Pulse Rate 52 L Respiratory Rate 18 Blood Pressure 145/91 H Pulse Oximetry 99 Oxygen Delivery Room Air Exam Narrative: Physical exam reveals patient to be alert. Vital signs stable. HEENT is unremarkable. Patient is anicteric. Lungs are clear to auscultation and to percussion heart is without murmur or bowel sounds are present soft nontender with no organomegaly. Digital external rectal exam normal. Assessment and Plan Assessment and plan (1) Epigastric abdominal pain: Code(s): R10.13 - Epigastric pain Status: Acute Assessment and Plan: Epigastric pain has
--- NOTE | 2024-02-19 09:30 | WPDANESEPPF ---
Anes - Initial Pre Proc Eval Procedure: Operation Date: 02/19/24 10:00 Proposed Procedures p Esophagogastroduodenoscopy - Sonny Chowdary MD Date/Time: 02/19/24 09:30 Surgeon: Sonny Chowdary MD Pre Op Diagnosis: Epigastric pain, history of gastric bypass Patient Data Age: 58 Gender: F Height: 1.52 m Weight: 62.1 kg Last Vital Signs Temp 36.4 C 02/19/24 09:11 Pulse 52 L 02/19/24 09:11 Resp 18 02/19/24 09:11 BP 145/91 H 02/19/24 09:11 Pulse Ox 99 02/19/24 09:11 O2 Del Method Room Air 02/19/24 09:11 Allergies Allergy/AdvReac Type Severity Reaction Status Date / Time latex Allergy Intermediate Rash Verified 02/19/24 09:00 ibuprofen [From Advil] Allergy Mild Swelling Verified 02/19/24 09:00 of the Eye Home Medications Medication Instructions Recorded Confirmed Type loratadine 10 mg tablet (Allergy 10 mg PO DAILY #30 tabs 06/13/22 02/03/24 Rx Relief (loratadine)) acetaminophen 650 mg tablet 650 mg PO Q6H PRN Pain 02/21/23 02/19/24 History multivitamin with minerals-folic 1 tablet PO DAILY 02/21/23 02/03/24 History acid 0.4 mg tablet azelastine 137 mcg (0.1 %) nasal See Rx Instructions .Route 12/08/23 02/19/24 Rx spray aerosol .COMPLEX #30 mL albuterol sulfate 90 mcg/actuation 1 puff inhalation Q4H PRN 12/10/23 02/19/24 Rx aerosol inhaler Shortness Of Breath #8.5 grams cholecalciferol (vitamin D3) 1,250 1,250 mcg PO WEEKLY #8 tabs 01/08/24 02/03/24 Rx mcg (50,000 unit) tablet lisinopril 40 mg tablet 40 mg PO DAILY #90 tabs 01/08/24 02/03/24 Rx amitriptyline 25 mg tablet 25 mg PO QHS #30 tabs 01/29/24 02/03/24 Rx Patient hx anesthesia problems: none Family hx anesthesia problems: none Results Review: All pre-operative results and documents have been reviewed as part of the pre-operative evaluation. [facility] Past Medical History Medical History HTN (hypertension) Hyperlipidemia Hypothyroidism Sinus bradycardia Type 2 diabetes mellitus Resolved after gastric bypass Surgical History Surgical History H/O carpal tunnel repair History of gastric bypass History of tubal ligation S/P trigger finger release Family History Family History Father Hypertension Heart disease Mother Diabetes mellitus Cerebrovascular accident Social History Social History Smoking status: Never smoker Alcohol intake: current Drinks per week: 0 Alcohol use details: 1-2 PER MONTH Substance use: never Substance use type: does not use Lack of Transportation: No Lack of Food: Never True Current Housing: I Have Housing Concerned About Future Housing: No Difficulty Paying Gas/Electric Bills: No Difficulty Paying for Meds: No Currently Unemployed: No Education: High School Diploma/GED Difficulty w/ Childcare or Family Care: No Living arrangements: with family Additional living arrangements comments: Lives with Fimony? Spiritual care concerns: No Anes - Eval Final PreProcedure Day of Procedure 02/19/24 09:30 Patient weight: overweight Heart: regular rate and rhythm Lungs: clear to auscultation and normal air movement Airway: Mallampati scale Neurological: alert and oriented Last oral intake: >/= 8 hours ASA classification: II Emergent: no Anesthetic plan: proceed Anesthesia type and monitoring: general Results Review: All pre-operative results and documents have been reviewed as part of the pre-operative evaluation. Informed Consent: The patient's anesthetic plan and its attendant risks and benefits were discussed with the patient/family/POA. Questions were solicited and answers provided to the satisfaction of the patient/family/POA.
[2024-02-19 10:21] VITALS: BP 114/65; PULSE 54; RESP 12; O2SAT 99
[2024-02-19 10:31] VITALS: BP 107/70; PULSE 45; RESP 12; O2SAT 99
[2024-02-19 10:41] VITALS: BP 112/98; PULSE 47; RESP 14; O2SAT 100
--- NOTE | 2024-02-19 11:18 | WPDANESPN ---
Anes - Prog Note Post-Op Date/Time: 02/19/24 11:18 Cardiovascular status: normal Respiratory status: normal Airway patency: baseline Mental status: baseline Post-Op hydration status: normal Vital Signs: Last Vital Signs Temp 36.4 C 02/19/24 09:11 Pulse 47 L 02/19/24 10:41 Resp 14 02/19/24 10:41 BP 112/98 H 02/19/24 10:41 Pulse Ox 100 02/19/24 10:41 O2 Del Method Room Air 02/19/24 10:41 Pain Score (VAS): 0 I/O: Intake & Output 02/18/24 02/19/24 02/19/24 23:59 07:59 15:59 Intake Total 500 Balance 500 Post-procedural complaints: none Patient Feedback: Patient satisfied with anesthetic care. Other Findings: Patient vital signs back to baseline. Patient denies nausea and vomiting. Patient's pain under control. Patient OK for discharge.
== END 2024-02-19 10:53 | disposition home or self-care (01) ==
PROVIDERS: PCP Emergency Medicine; Visit Provider Internal Medicine Gastroenterology
PROC: 0DJ08ZZ Inspection of Upper Intestinal Tract, Via Natural or Artificial Opening Endoscopic (ICD-10-PCS; CPT 43235; principal; 2024-02-19 10:00)
DX: R10.13 Epigastric pain (principal); Z98.84 Bariatric surgery status; K22.10 Ulcer of esophagus without bleeding
CPT/HCPCS: 43239

== ENCOUNTER 2025-06-14 09:31 | Outpatient (CLI) | payer OTHER, SELFPAY ==
--- NOTE | ~2025-06-14 | XR_ITS ---
EXAMINATION: XR shoulder LT min 2V, 06/14/2025 9:47 CDT HISTORY: M25.512 - Pain in left shoulder COMPARISON: No comparisons available. Findings: No acute fracture or malalignment. No significant degenerative changes. Soft tissues unremarkable. Impression: No acute fracture or malalignment. Reviewed, dictated and finalized at location A. Impression: No acute fracture or malalignment.
--- NOTE | ~2025-06-14 | XR_ITS ---
EXAMINATION: XR chest 2V, 06/14/2025 9:47 CDT HISTORY: Z01.818 - Encounter for other preprocedural examination COMPARISON: No comparisons available. Technique: 2 views obtained. Findings: The lungs are clear, no effusion. No pneumothorax. Heart is normal size. Mediastinal and hilar contours are within normal limits. Bony thorax no acute abnormality. Impression: No acute cardiopulmonary abnormality. Reviewed, dictated and finalized at location A. Impression: No acute cardiopulmonary abnormality.
--- NOTE | 2025-06-14 09:47 | ECG_ITS ---
Test Date: 2025-06-14 10:04:27 Measurements Intervals [place] Rate: 46 P: 41 NH: 164 QRS: 21 QRSD: 94 T: 22 QT: 408 QTc: 359 Interpretive Statements SINUS BRADYCARDIA OTHERWISE NORMAL ECG No previous ECG available for comparison Electronically Signed On 06-14-2025 12:45:24 CDT by Keith Gupta M.D.
[2025-06-14 10:08] LABS: INR 0.9; Partial Thromboplastin Time 26.2 Sec (23.9-30.70); Prothrombin Time 10.5 Seconds (9.50-12.1)
[2025-06-14 10:10] LABS: Hemoglobin A1C 5.5 % (<5.7)
[2025-06-14 10:27] LABS: Hematocrit 40.3 % (35.0-49.0); Hemoglobin 12.4 g/dL (12.0-15.0); Immature Granulocyte Percent A 0.2 % (0.0-0.0); Lymphocytes Absolute Auto 1.85 K/mm3 (1.10-4.50); Mean Corpuscular HGB Conc 30.8 g/dL (32-36); Mean Corpuscular Hemoglobin 25.5 pg (27.0-31.0); Mean Corpuscular Volume 82.8 fL (78.0-102.0); Nucleated Red Blood Cells Absolute Auto 0.00 K/mm3 (0.00-0.00); Nucleated Red Blood Cells Perc 0.0 % (0-0.0); Platelet Count Result 329 K/mm3 (150-420); Red Blood Count 4.87 M/mm3 (4.20-5.40); White Blood Count 6.5 K/mm3 (4.8-10.8)
[2025-06-14 10:57] LABS: Alanine Aminotransferase 28 U/L (6-35); Albumin Level 4.4 g/dL (3.5-5.1); Alkaline Phosphatase 82 U/L (38-126); Anion Gap 9 mmol/L (4-12); Aspartate Amino Transferase 37 U/L (14-36); Bilirubin,Total 1.0 mg/dL (0.2-1.3); Blood Urea Nitrogen 16 mg/dL (7-17); Calcium 9.9 mg/dL (8.4-10.2); Carbon Dioxide 27 mmol/L (22-30); Chloride 107 mmol/L (98-107); Cholesterol 192 mg/dL (0-200); Estimated Glomerular Filt Rate > 60; Glucose 99 mg/dL (65-110); HDL Direct 84 mg/dL; Osmolality Calculated 297 mOsm/kg (285-295); Potassium 4.7 mmol/L (3.4-5.0); Sodium 143 mmol/L (137-145); Total Protein 7.7 g/dL (6.3-8.2); Triglycerides 103 mg/dL (<150)
[2025-06-14 11:22] LABS: Free T4 Free Thyroxine 0.77 ng/dL (0.78-2.19)
[2025-06-14 11:27] LABS: Thyroid Stimulating Hormone 0.991 uIU/mL (0.465-4.680)
[2025-06-16 09:35] LABS: Total Triiodothyronine (T3) 0.890
== END 2025-06-14 09:32 | disposition home or self-care (01) ==
LOC: CHSLAB 09:33
PROVIDERS: PCP Nurse Practitioner Family; Visit Provider Nurse Practitioner Family
DX: Z01.818 Encounter for other preprocedural examination (principal); I10 Essential (primary) hypertension; Z79.01 Long term (current) use of anticoagulants; Z13.6 Encounter for screening for cardiovascular disorders; E11.9 Type 2 diabetes mellitus without complications; E03.9 Hypothyroidism, unspecified; R79.89 Other specified abnormal findings of blood chemistry; M25.512 Pain in left shoulder; R00.1 Bradycardia, unspecified
CPT/HCPCS: 36415; 71046; 73030; 80053; 80061; 83036; 84439; 84443; 84480; 85025; 85610; 85730; 93005

== ENCOUNTER 2025-06-22 13:00 | Outpatient (RCR) | payer OTHER, SELFPAY ==
--- NOTE | 2025-06-20 15:32 | OPREHPOC ---
Outpatient Therapy Plan of Care This is a Multidisciplinary Plan of Care that may contain components documented by all disciplines (PT, OT, and ST.) PT Problem 1 PT Problem #1 Knowledge Deficit PT Goal 1 Goal / Goal Update independent and compliant with HEP PT Problem 2 PT Problem #2 Pain PT Goal 1 Goal / Goal Update decrease pain at worst to 2/10 or less in the L shoulder Target Visit 12 PT Problem 3 PT Problem #3 Impaired Range of Motion PT Goal 1 Goal / Goal Update 150 degrees bilateral active shoulder flex 140 degrees bilateral active shoulder abd 90 degrees L active shoulder ER 65 degrees L active shoulder IR Target Visit 12 PT Problem 4 PT Problem #4 Impaired Strength PT Goal 1 Goal / Goal Update 4+/5 or better bilateral shoulder strength Target Visit 12 PT Problem 5 PT Problem #5 Impaired Functional Mobility PT Goal 1 Goal / Goal Update patient to sleep through the night 4 nights a week or better patient to get dressed without limitations or pain patient to reach ovehead and put 5lbs on tall shelf with each hand quick dash to display 30% or less functional deficits Target Visit 12
--- NOTE | 2025-06-20 15:32 | PTOPEVAL1 ---
Assessment and note entered by JT File, PT Evaluation Information Assessment Status Evaluation ICD-10 Condition Codes (PT) Pain in left shoulder M25.512 Onset 06/15/2025 Subjective Information patient reports she has been having pain in the L shoulder for years. she reports lately it has been getting much worse. she reports she is being woken up during sleep, she cant lift or open windows, and cant lift a gallon of water. she reports she is only able to lift it a little. she reports she did have an xray of the L shoulder. she reports she has not yet had an MRI of the L shoulder. she reports she was just prescribed a mm relaxor. Reported Pain Level Pain Score 7: Self Report Assessment PT Clinical Summary mrs. harper is a pleasant 60 yo woman who presents to skilled PT services for evaluation and treatment of L shoulder pain. she presents with pain in both shoulder upon evaluation today, but worse on the L side. she displays signs and symptoms consistent with bilat shoulder RTC tendinopathy (worse on the L side). she displays decreased active rom, mm weakness, positive RTC testing, and decreased functional activity performance. continued skilled PT is indicated to improve her objective/functional deficits and achieve her goals. Plan of Care Interventions Electrical Stimulation,Hot Pack/Cold Pack,Manual Therapy,Neuro Re-education,Patient/Caregiver Education,Therapeutic Activities,Therapeutic Exercise PT Services Indicated Yes Treatment Frequency and 3x weekly for 12 visits Duration These treatments will address the objective and functional deficits as defined above. The patient will be advanced safely and appropriately in order for the patient to progress towards his/her prior level of function. Additional exercises will be introduced and as well as a comprehensive home exercise program upon discharge, if needed, ?to ensure carryover of functional gains achieved in the clinic. This treatment plan has been reviewed and agreement upon by the patient.
--- NOTE | 2025-07-15 15:26 | BUPTOPEVAL1 ---
Assessment and note entered by JT File, PT Evaluation Information Assessment Status Progress Assessment Status Evaluation ICD-10 Condition Codes (PT) Pain in left shoulder M25.512 ICD-10 Condition Codes (PT) Pain in left shoulder M25.512 Onset 06/15/2025 Onset 06/15/2025 Subjective Information patient reports the L shoulder does not feel like it is improving much at all. she reports it still pina, catches, and aches. she reports it will also get stuck/locked at times. Subjective Information patient reports she has been having pain in the L shoulder for years. she reports lately it has been getting much worse. she reports she is being woken up during sleep, she cant lift or open windows, and cant lift a gallon of water. she reports she is only able to lift it a little. she reports she did have an xray of the L shoulder. she reports she has not yet had an MRI of the L shoulder. she reports she was just prescribed a mm relaxor. Reported Pain Level Pain Score 8: Self Report Pain Score 8: Self Report Pain Score 5: Self Report Pain Score 5: Self Report Pain Score 5: Self Report Pain Score 5: Self Report Pain Score 8: Self Report Pain Score 5: Self Report Pain Score 5: Self Report Pain Score 7: Self Report Assessment PT Clinical Summary mrs. harper presents to skilled PT services for her 10th visit for the L shoulder. she continues to have pain in the L shoulder and limitation in midrange shoulder flexion rom. she displays signs and symptoms still of RTC tendinopathy and impingement. continued skilled PT is indicated to work on improvement of objective/functional deficits to achieve goals. however, patient would benefit from having an injection or round of oral steroids to the L shoulder. PT Clinical Summary mrs. harper is a pleasant 60 yo woman who presents to skilled PT services for evaluation and treatment of L shoulder pain. she presents with pain in both shoulder upon evaluation today, but worse on the L side. she displays signs and symptoms consistent with bilat shoulder RTC tendinopathy (worse on the L side). she displays decreased active rom, mm weakness, positive RTC testing, and decreased functional activity performance. continued skilled PT is indicated to improve her objective/functional deficits and achieve her goals. Plan of Care Interventions Electrical Stimulation,Hot Pack/Cold Pack,Manual Therapy,Neuro Re-education,Patient/Caregiver Education,Therapeutic Activities,Therapeutic Exercise Interventions Electrical Stimulation,Hot Pack/Cold Pack,Manual Therapy,Neuro Re-education,Patient/Caregiver Education,Therapeutic Activities,Therapeutic Exercise PT Services Indicated Yes PT Services Indicated Yes PT Services Indicated Yes PT Services Indicated Yes PT Services Indicated Yes PT Services Indicated Yes PT Services Indicated Yes PT Services Indicated Yes PT Services Indicated Yes PT Services Indicated Yes Treatment Frequency and continue per initial POC Duration Treatment Frequency and 3x weekly for 12 visits Duration These treatments will address the objective and functional deficits as defined above. The patient will be advanced safely and appropriately in order for the patient to progress towards his/her prior level of function. Additional exercises will be introduced and as well as a comprehensive home exercise program upon discharge, if needed, ?to ensure carryover of functional gains achieved in the clinic. This treatment plan has been reviewed and agreement upon by the patient.
--- NOTE | 2025-07-15 15:27 | OPREHPOC ---
Outpatient Therapy Plan of Care This is a Multidisciplinary Plan of Care that may contain components documented by all disciplines (PT, OT, and ST.) PT Problem 1 PT Problem #1 Knowledge Deficit PT Goal 1 Goal / Goal Update independent and compliant with HEP Progress Met PT Problem 2 PT Problem #2 Pain PT Goal 1 Goal / Goal Update decrease pain at worst to 2/10 or less in the L shoulder Target Visit 12 Progress Not Met PT Problem 3 PT Problem #3 Impaired Range of Motion PT Goal 1 Goal / Goal Update 150 degrees bilateral active shoulder flex. met 140 degrees bilateral active shoulder abd 90 degrees L active shoulder ER 65 degrees L active shoulder IR. met Target Visit 12 Progress Partially Met PT Problem 4 PT Problem #4 Impaired Strength PT Goal 1 Goal / Goal Update 4+/5 or better bilateral shoulder strength Target Visit 12 Progress Not Met PT Problem 5 PT Problem #5 Impaired Functional Mobility PT Goal 1 Goal / Goal Update patient to sleep through the night 4 nights a week or better patient to get dressed without limitations or pain patient to reach ovehead and put 5lbs on tall shelf with each hand quick dash to display 30% or less functional deficits Target Visit 12 Progress Not Met
--- NOTE | 2025-07-20 15:47 | OPREHPOC ---
Outpatient Therapy Plan of Care This is a Multidisciplinary Plan of Care that may contain components documented by all disciplines (PT, OT, and ST.) PT Problem 1 PT Problem #1 Knowledge Deficit PT Goal 1 Goal / Goal Update independent and compliant with HEP Progress Met PT Problem 2 PT Problem #2 Pain PT Goal 1 Goal / Goal Update decrease pain at worst to 2/10 or less in the L shoulder Target Visit 12 Progress Not Met PT Problem 3 PT Problem #3 Impaired Range of Motion PT Goal 1 Goal / Goal Update 150 degrees bilateral active shoulder flex. met 140 degrees bilateral active shoulder abd. met 90 degrees L active shoulder ER 65 degrees L active shoulder IR. met Target Visit 12 Progress Partially Met PT Problem 4 PT Problem #4 Impaired Strength PT Goal 1 Goal / Goal Update 4+/5 or better bilateral shoulder strength Target Visit 12 Progress Partially Met PT Problem 5 PT Problem #5 Impaired Functional Mobility PT Goal 1 Goal / Goal Update patient to sleep through the night 4 nights a week or better. not met patient to get dressed without limitations or pain . not met patient to reach ovehead and put 5lbs on tall shelf with each hand. not met quick dash to display 30% or less functional deficits. not met Target Visit 12 Progress Not Met
--- NOTE | 2025-07-20 15:47 | PTOPREEVAL ---
Assessment and note entered by JT File, PT Evaluation Information Assessment Status Re-evaluation ICD-10 Condition Codes (PT) Pain in left shoulder M25.512 Onset 06/15/2025 Subjective Information patient reports the L shoulder continues to have pain with reaching and functional activities. she reports it hurts when reaching up overhead, and behind her back mostly. she reports she is getting a steroid dose pack later today for the L shoulder. she reports it pops and cracks all the time. Reported Pain Level Pain Score 6: Self Report Assessment PT Clinical Summary mrs. harper presents to skilled PT for her 12th skilled PT visit today. she displays good active rom against gravity, but with continued pain throughout the middle of the movement. she also displays good strength of the L shoulder, but again with pain against mmt resistance. she was educated today to hold off on therapy for a week, take her steroid dose pack (prescribed by PCP), and follow up with PT after she is done to assess thoughts on return to skilled PT. Plan of Care Interventions Electrical Stimulation,Hot Pack/Cold Pack,Manual Therapy,Neuro Re-education,Patient/Caregiver Education,Therapeutic Activities,Therapeutic Exercise PT Services Indicated Yes Treatment Frequency and hold therapy for a week and follow up. Duration These treatments will address the objective and functional deficits as defined above. The patient will be advanced safely and appropriately in order for the patient to progress towards his/her prior level of function. Additional exercises will be introduced and as well as a comprehensive home exercise program upon discharge, if needed, ?to ensure carryover of functional gains achieved in the clinic. This treatment plan has been reviewed and agreement upon by the patient.
== END 2025-09-18 23:59 | disposition home or self-care (01) ==
LOC: CHSPT 13:00
PROVIDERS: PCP Nurse Practitioner Family; Visit Provider Nurse Practitioner Family
DX: M25.512 Pain in left shoulder (principal)
CPT/HCPCS: 97014; 97110; 97140; 97161; G0283

== ENCOUNTER 2025-06-27 10:05 | Outpatient (CLI) | payer OTHER, SELFPAY ==
--- NOTE | 2025-06-27 10:10 | EST_ITS ---
Patient Info Name: Michelle Sheehan Age: 60 years : 1965 Gender: Female Ht: 60 in Wt: 134 lbs BSA: 1.62 m2 HR: 56 bpm BP: 154 / 101 mmHg Heart Rhythm: Bradycardia Technical Quality: Good Exam Date: 06/27/2025 10:10 AM Patient Status: O Admit Date: 06/27/2025 Exam Type: CA stress test treadmill A treadmill exercise stress test was performed. Staff Attending Provider: Cyndee Harry Summary 1. 1. Negative Silvino exercise stress test for ischemic ST changes by ECG criteria. 2. 2. Good functional capacity, achieving 11 METs of workload. 3. 3. Baseline hypertension. 4. 4. Appropriate HR response to exercise. 5. 5. Appropriate HR recovery at 1 minute post exercise. 6. 6. No imaging with stress testing. History/Risk Factors Hypertension: Yes Dyslipidemia: Yes Diabetes Mellitus: Type II Protocol: Silvino Stress ECG Details Stage: REST Duration (min): 3 min : 19 sec Speed (mph): 0.0 Grade (%): 0 HR (bpm): 57 SBP (mmHg): 154 DBP (mmHg): 101 METS: --- Stage: REST Duration (min): 10 min : 26 sec Speed (mph): 0.0 Grade (%): 0 HR (bpm): 58 SBP (mmHg): 154 DBP (mmHg): 101 METS: --- Stage: STAGE 1 Duration (min): 1 min : 0 sec Speed (mph): 1.7 Grade (%): 10 HR (bpm): 88 SBP (mmHg): 154 DBP (mmHg): 101 METS: --- Stage: STAGE 1 Duration (min): 2 min : 0 sec Speed (mph): 1.7 Grade (%): 10 HR (bpm): 74 SBP (mmHg): 154 DBP (mmHg): 101 METS: --- Stage: STAGE 1 Duration (min): 3 min : 0 sec Speed (mph): 1.7 Grade (%): 10 HR (bpm): 76 SBP (mmHg): 114 DBP (mmHg): 64 METS: --- Stage: STAGE 2 Duration (min): 1 min : 0 sec Speed (mph): 2.5 Grade (%): 12 HR (bpm): 91 SBP (mmHg): 114 DBP (mmHg): 64 METS: --- Stage: STAGE 2 Duration (min): 2 min : 0 sec Speed (mph): 2.5 Grade (%): 12 HR (bpm): 93 SBP (mmHg): 114 DBP (mmHg): 64 METS: --- Stage: STAGE 2 Duration (min): 3 min : 0 sec Speed (mph): 2.5 Grade (%): 12 HR (bpm): 99 SBP (mmHg): 162 DBP (mmHg): 56 METS: --- Stage: STAGE 3 Duration (min): 1 min : 0 sec Speed (mph): 3.4 Grade (%): 14 HR (bpm): 116 SBP (mmHg): 162 DBP (mmHg): 56 METS: --- Stage: STAGE 3 Duration (min): 2 min : 0 sec Speed (mph): 3.4 Grade (%): 14 HR (bpm): 130 SBP (mmHg): 162 DBP (mmHg): 56 METS: --- Stage: STAGE 3 Duration (min): 3 min : 0 sec Speed (mph): 3.4 Grade (%): 14 HR (bpm): 139 SBP (mmHg): 162 DBP (mmHg): 56 METS: --- Stage: STAGE 4 Duration (min): 0 min : 30 sec Speed (mph): 4.2 Grade (%): 16 HR (bpm): 147 SBP (mmHg): 162 DBP (mmHg): 56 METS: --- Stage: RECOVERY Duration (min): 0 min : 29 sec Speed (mph): 1.5 Grade (%): 0 HR (bpm): 139 SBP (mmHg): 162 DBP (mmHg): 56 METS: --- Stage: RECOVERY Duration (min): 1 min : 29 sec Speed (mph): 0.0 Grade (%): 0 HR (bpm): 113 SBP (mmHg): 162 DBP (mmHg): 56 METS: --- Stage: RECOVERY Duration (min): 2 min : 29 sec Speed (mph): 0.0 Grade (%): 0 HR (bpm): 92 SBP (mmHg): 202 DBP (mmHg): 101 METS: --- Stage: RECOVERY Duration (min): 3 min : 29 sec Speed (mph): 0.0 Grade (%): 0 HR (bpm): 80 SBP (mmHg): 161 DBP (mmHg): 97 METS: --- Stage: RECOVERY Duration (min): 4 min : 29 sec Speed (mph): 0.0 Grade (%): 0 HR (bpm): 79 SBP (mmHg): 161 DBP (mmHg): 97 METS: --- Stage: RECOVERY Duration (min): 5 min : 29 sec Speed (mph): 0.0 Grade (%): 0 HR (bpm): 77 SBP (mmHg): 161 DBP (mmHg): 97 METS: --- Stage: RECOVERY Duration (min): 6 min : 29 sec Speed (mph): 0.0 Grade (%): 0 HR (bpm): 74 SBP (mmHg): 134 DBP (mmHg): 92 METS: --- Stage: RECOVERY Duration (min): 7 min : 29 sec Speed (mph): 0.0 Grade (%): 0 HR (bpm): 73 SBP (mmHg): 134 DBP (mmHg): 92 METS: --- Stage: RECOVERY Duration (min): 7 min : 49 sec Speed (mph): 0.0 Grade (%): 0 HR (bpm): --- SBP (mmHg): 134 DBP (mmHg): 92 METS: --- Rest HR: 58 bpm Peak HR: 148 bpm Rest Sys BP: 154 mmHg Peak Sys BP: 202 mmHg Max Pred HR: 162 bpm % Max Pred HR: 91 % Target HR: 138 bpm Max RPP: 29,896 bpm*mmHg Lane Score: 1 Target HR Summary: Patient's target heart rate was achieved BP Response: Normal blood pressure response Termination Reason: Fatigue,faster walking Cardiac Symptoms: None Max ST Seg Deviation: 1.70 mm Total Time: 9 min : 30 sec Rest Germain BP: 101 mmHg Peak Germain BP: 101 mmHg Angina Score: None Total METS: 11.2 Resting ECG Sinus bradycardia, delayed precordial R/S transition. Stress ECG Borderline ST-T wave abnormality in inf/lat leads. Arrhythmias None. Report Signatures
--- OUTSIDE RECORDS SUMMARY | 2025-06-27 11:13 | XMS_ITS | Clinical Summary ---
Author Organization [facility] Address [address] [place] [id number] Care Team Providers Care Cupola Liner Name Role Phone Popeye Joya MD Primary Care Provider [phone] Social History Tobacco Use Types Packs/Day Years Used Date Smoking Tobacco: Never Assessed Comments Unknown Sex and Gender Information Value Date Recorded Sex Assigned at Not on file Legal Sex Female 8:47 AM CDT Gender Identity Not on file Sexual Orientation Not on file Plan of Treatment Health Maintenance Due Date Last Done Comments Cervical Cancer Screening Pap Smear (Age 30 to 64) Every 3 Years 1967 Colorectal Cancer Screening Colonoscopy (10 Years) 1967 Annual Physical 1970 Hepatitis C 1985 Hepatitis B Vaccines (1 of 3 - 19+ 3-dose series) 1986 Cervical Cancer Screening Pap with HPV Testing (Age 30 to 64) Every 5 Years 1997 Cervical Cancer Screening with HPV 1997 Mammogram Screening 2007 Pneumococcal Vaccine: 50+ Years (1 of 1 - PCV) 2017 COVID-19 Vaccine ( - season) 2025 Influenza Adult (#1) 2025 07/27/2022, 07/04/2021, 09/28/2020, Additional history exists DTaP, Tdap and Td Vaccines (2 - Td or Tdap) 01/17/2033 01/17/2023 Zoster Vaccines Completed 08/31/2023, 03/01/2023 Meningococcal B Vaccine Aged Out No l onger eligible based on patient's age to complete this topic Meningococcal Vaccine Aged Out No arline hernán eligible based on patient's age to complete this topic RSV Immunizations Under 20 Months Aged Out No longer eligible based on patient's age to complete this topic Insurance [employer] Care Teams Cupola Liner Relationship Specialty Start Date End Date Popeye Joya MD [address], [place] [id number] PCP - General EMERGENCY MEDICINE 01/01/24
== END 2025-06-27 10:06 | disposition home or self-care (01) ==
LOC: CHSCARD 10:06
PROVIDERS: PCP Nurse Practitioner Family; Visit Provider Nurse Practitioner Family
DX: Z01.818 Encounter for other preprocedural examination (principal); I10 Essential (primary) hypertension
CPT/HCPCS: 93017